=== PATIENT | female | born 1980 | race Caucasian/White ===

== ENCOUNTER 2018-02-12 20:04 | Emergency (ER) | payer OTHER ==
[~2018-02-12] VITALS: Ht 165.1 cm; Wt 57.8 kg
[~2018-02-12 20:04] MED LIST: ACETAMINOPHEN-1 EAC1 PO; ENDOCET 5-3251 EACH PO; IBUPROFEN800 MG PO; Motrin PO; PRENATAL TABLE1 EAC3 PO; Percocet 5/325,Endoc PO
[2018-02-12 20:52] LABS: HEMATOCRIT 35.7 % (36.0-46.0); HEMOGLOBIN 12.4 G/DL (11.9-15.5); MCH 29.9 PG (29.0-34.0); MCHC 34.7 G/DL (30.0-36.0); PLATELET COUNT 307 K/uL (156-360); RBC DIS.WIDTH-CV 12.4 % (11.8-14.6); RBC DIS.WIDTH-SD 39.1 % (39-53); RED BLOOD COUNT 4.15 M/uL (3.80-5.20); WHITE BLOOD COUNT 7.4 K/uL (4.1-10.2)
[2018-02-12 21:01] LABS: CHLORIDE 103 mEq/L (99-109); POTASSIUM 3.5 mEq/L (3.7-5.4); SODIUM 139 mEq/L (136-147)
[2018-02-12 21:03] LABS: GLUCOSE 111 mg/dL (70-99)
[2018-02-12 21:04] LABS: D-DIMER ELISA < 150.00 ng/mLDDU (<230)
[2018-02-12 21:07] LABS: CREATININE 0.8 mg/dL (0.6-1.3); GFR ESTIMATE (CALCULATED) > 59 mL/min/
[2018-02-12 21:08] LABS: UREA NITROGEN (BUN) 12 mg/dL (9-23)
[2018-02-12 21:14] LABS: TROP-I INTERPRETATION NEGATIVE; TROPONIN-I < 0.01 ng/mL (0.0-0.30)
[2018-02-12 21:15] LABS: QUANTITATIVE HCG < 4.0 MIU/ML
[2018-02-12 23:37] VITALS: BP 108/73
== END 2018-02-12 23:56 | disposition home or self-care (01) ==
LOC: EME 20:04
PROVIDERS: Emergency Medicine
DX: R07.9 Chest pain, unspecified (principal); R20.2 Paresthesia of skin; M79.602 Pain in left arm; M54.2 Cervicalgia; R51 Headache; Z86.73 Personal history of transient ischemic attack (TIA), and cerebral infarction without residual deficits
CPT/HCPCS: 70498; 71046; 80048; 84484; 84702; 85027; 85379; 93005; 99281; 99285